=== PATIENT | female | born 1975 | race Hispanic/Latino ===

== ENCOUNTER 2017-11-18 07:09 | Observation (INO) | payer MEDICAID ==
[~2017-11-18] VITALS: Ht 165.1 cm; Wt 126.5 kg
[~2017-11-18 07:09] MED LIST: BUPR100T5 PO; CYAN50008 PO; IRON18TA PO; LISI1TAB11 PO; MULT-1203 PO; MV-M1TAB20 PO; OMEP40CA37 PO; TOPI50TA24 PO
[2017-11-18 07:37] LABS: BASOPHILS % (AUTO) 0.6 % (0.0-5.0); EOSINOPHILS % (AUTO) 2.7 % (0.0-8.0); HEMATOCRIT 33.9 % (36-48); MEAN CORPUSCULAR HEMOGLOBIN 25.3 pg (27.0-33.0); MEAN CORPUSCULAR HGB CONC 31.3 g/dL (32.0-36.0); MEAN CORPUSCULAR VOLUME 80.9 fL (79-99); MONOCYTES % (AUTO) 10.3 % (3.0-13.0); NEUTROPHILS % (AUTO) 46.4 % (40.0-77.0); PLATELET COUNT (AUTO) 195 K/uL (130-400); RED BLOOD CELL COUNT(AUTO) 4.18 MIL/uL (4.00-5.50); RED CELL DISTRIBUTION WIDTH 15.9 % (11.0-15.5); WHITE BLOOD COUNT (AUTO) 6.4 K/uL (4.8-10.8)
[2017-11-18 07:47] LABS: CREATININE 0.7 mg/dL (0.5-1.5); POTASSIUM 3.6 mmol/L (3.5-5.1)
[2017-11-18 07:59] VITALS: BP 133/77
[2017-11-18 08:00] LABS: ALBUMIN 3.1 g/dL (3.5-5.0); BILIRUBIN,TOTAL 0.5 mg/dL (0.2-1.0); TOTAL PROTEIN, SERUM 6.9 g/dL (6.0-8.3)
[2017-11-18] MEDS ORDERED: SODIUM CHLORIDE 0.9% 1000ML 1,000 ML IV ONE (08:12)
[2017-11-18] MEDS ORDERED: PROPOFOL 10 MG/ML 20ML VIAL IV ONE ×2 (08:25)
[2017-11-18] MEDS ORDERED: FENTANYL CITRATE PF 50 MCG/1 ML 2ML VIAL ONE (08:25)
[2017-11-18 08:45] VITALS: BP 124/69
[2017-11-18 08:50] VITALS: BP 133/79
[2017-11-18 08:55] VITALS: BP 133/75
[2017-11-18 09:00] VITALS: BP 141/77
== END 2017-11-18 10:05 | disposition home or self-care (01) ==
LOC: DAHIP 07:09 → EDSTATUS 08:30
PROVIDERS: ADMIT Surgery; ATTEND Surgery
DX: K31.1 Adult hypertrophic pyloric stenosis (principal); Z98.84 Bariatric surgery status
CPT/HCPCS: 36415; 43235; 80053; 82150; 83690; 85025; A4606; C1725; C1726; G0378 ×4; J2704 ×2; J3010; J7030